=== PATIENT | female | born 1990 | race Caucasian/White ===

== ENCOUNTER 2016-12-08 23:26 | Emergency (ER) | payer OTHER ==
[2016-12-09] MEDS ORDERED: DIPHENHYDRAMINE HCL 50 MG/1 ML VIAL ONE (00:40)
[2016-12-09] MEDS ORDERED: METOCLOPRAMIDE HCL 5 MG/ML 2ML VIAL ONE (00:40)
[2016-12-09] MEDS ORDERED: KETOROLAC TROMETHAMINE 30 MG/ML 1 ML VIAL ONE (00:40)
[2016-12-09] MEDS ORDERED: SODIUM CHLORIDE 0.9% 1,000 ML ONE (00:40)
[2016-12-09] MEDS ORDERED: ONDANSETRON 4 MG/2ML 2 ML VIAL ONE (00:40)
[2016-12-09 01:01] LABS: ABSOLUTE NEUTROPHIL COUNT 4.7 K/mm3 (1.8-7.7); BASO # 0.1 K/mm3 (0.0-0.2); BASO % 1.1 % (0.2-1.0); EOS # 0.2 (0.0-0.5); IMM NEUT% 0.3 % (0-1); LYMPH % 26.8 % (15-45); MEAN CELL VOLUME 80.4 fl (81.0-99.0); MEAN CORPUSCULAR HEMOGLOBIN 24.6 pg (27.0-31.0); MEAN CORPUSCULAR HGB CONC 30.6 g/dl (33.0-37.0); MEAN PLATELET VOLUME 9.6 fl (7.4-10.4); MONO # 0.6 (0.0-0.8); MONO % 7.7 % (4-12); NEUT % 62.1 % (43-75); PLATELET COUNT 297 K/mm3 (130-400); RED CELL DISTRIBUTION WIDTH 16.1 % (11.5-14.5)
[2016-12-09 01:11] LABS: ALB/GLOB RATIO 1.5 (>1.0); ALBUMIN 4.4 gm/dL (3.5-5.7); CALCIUM 9.2 mg/dL (8.6-10.3)
== END 2016-12-09 01:40 | disposition home or self-care (01) ==
LOC: ED 23:26
DX: E28.2 Polycystic ovarian syndrome (principal); R11.2 Nausea with vomiting, unspecified
CPT/HCPCS: 83690; 85025; 80053; 96375 ×3; 99283 ×2; 96374; 96361; J1200; J2765; J1885; J2405; J7030